=== PATIENT | male | born 1950 | race Caucasian/White ===

== ENCOUNTER 2024-12-25 09:53 | Outpatient (CLI) | payer MEDICARE, SELFPAY ==
--- NOTE | ~2024-12-25 | MR_ITS ---
MRI of the brain Clinical History: TIA Technique: Axial and sagittal T1-weighted images were acquired. These were followed by axial T2-weigh rahat, diffusion weighted, gradient, and FLAIR images. Findings: There is no acute infarct, internal hemorrhage, or mass lesion. There are moderate chronic white matter changes in the periventricular white matter bilaterally, compatible with chronic microva scular ischemic change. Ventricles and subarachnoid spaces are mildly dilated. Orbits are unremarkable. Paranasal sinuses and mastoid air cells are essentially clear. Major intracranial flow voids are intact. Sagittal midline structures are intact. IMPRESSION: No acute abnormality. Moderate chronic microvascular ischemic change. Reviewed, dictated and finalized at location .
== END 2024-12-25 09:54 | disposition home or self-care (01) ==
LOC: GOSHIMG 09:56
PROVIDERS: PCP Internal Medicine; Visit Provider Internal Medicine
DX: G45.9 Transient cerebral ischemic attack, unspecified (principal)
CPT/HCPCS: 70551